=== PATIENT | female | born 1990 | race Two or more races ===

== ENCOUNTER 2024-01-09 09:20 | Emergency (ER) | payer MEDICAID, OTHER ==
[~2024-01-09] VITALS: Ht 162.6 cm; Wt 94.5 kg
[2024-01-09 09:58] VITALS: BP 153/101; PULSE 108; RESP 18; TEMP 98; O2SAT 97
[2024-01-09] MEDS ORDERED: NAPR-746 PO (10:10)
[2024-01-09] MEDS ORDERED: BACDST PO (10:10)
--- NOTE | 2024-01-09 10:10 | ED.PDOC ---
HPI (NEURO) HPI Comments 33 year old with no MHx presents with a chief complaint of tenderness to the occipital lobe x1 day Pain rated as moderate Denies fever, chills, night sweats Denies persistent nausea Denies vomiting Denies thunderclap headache Denies photophobia, phonophobia Denies head trauma around the time headache started Denies family history of brain issues persistent headaches Denies taking any blood thinner medication Denies vision/hearing changes Denies focal loss of strength/sensation or changes in speech Chief Complaint: Headache Time Seen by MD: 09:43 Primary Care Provider: TOMA Reviewed Notes: Nurses Notes, Medications, Allergies Information Source: Patient Mode of Arrival: Ambulatory Past Medical History PAST MEDICAL HISTORY: Denies Surgical History: Denies all surgeries FISHER SEAL History: No Pertinent FISHER SEAL History Family History Family History: Reviewed,noncontributory to illness All Other Systems: Reviewed and Negative (Per HPI) Physical Exam General Appearance: No Apparent Distress, Normal HEENT: Head (Folliculitis to the occipital lobe. Tender to palpation), Normal ENT Inspection, Pharynx Normal, TMs Normal Neck: Full Range of Motion, Non-Tender, Normal, Normal Inspection Respiratory: Chest Non-Tender, Lungs Clear, No Accessory Muscle Use, No Respiratory Distress, Normal Breath Sounds Cardiovascular: No Edema, No JVD, No Murmur, No Gallop, Normal Peripheral Pulses, Regular Rate/Rhythm Breast Exam: Deferred Gastrointestinal: No Organomegaly, Non Tender, No Pulsatile Mass, Normal Bowel Sounds, Soft Genitalia: Deferred Pelvic: Deferred Rectal: Deferred Extremities: No calf tenderness, Normal capillary refill, Normal inspection, Normal range of motion, Non-tender, No pedal edema Musculoskeletal : Apperance: Normal Neurologic: Alert, 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 Was a procedure done?: No Differential Diagnosis (SZ) Seizure: Other X-Ray, Labs, Meds, VS Vital Signs Date Time Temp Pulse Resp B/P (MAP) Pulse Ox O2 Delivery O2 Flow Rate FiO2 01/09/24 09:58 98.0 108 18 153/101 (118) 97 98.0 01/09/24 09:58 108 18 97 Room Air 01/09/24 09:40 98.0 108 18 153/110 (124) 97 154/101 (118) X-Ray, Labs, Meds, VS Comment After ROS and physical examination no red flags. Romberg negative. Neuro exam unremarkable. Findings consistent with folliculitis to the occipital lobe. Treatment will be initiated at this time and return precautions discussed no indication for labs or imaging. Patient is stable for discharge at this time. External notes reviewed. Test results and diagnostic imaging interpreted. All diagnostic findings, discharge care, education and instructions provided Follow-up with PCP in 2 to 3 days Patient verbalized understanding and agreed to treatment plan Vital signs stable, afebrile, no acute distress noted Patient ambulatory with strong steady gait Advised to return precautions for any new or worsening symptoms, return to ER immediately for re-evaluation Patient is aware that the purpose of this visit was for an acute medical emergency requiring emergent stabilization. Chronic conditions, including malignancies have not been ruled out. Patient is instructed to follow up with PCP as directed and discharge instructions for continued care and workup. If unable to arrange follow-up, patient is to return to the emergency department for reassessment. Patient (parent or legal guardian if applicable) was given verbal and written discharge instructions and acknowledges understanding. Time of 1ST Reevaluation: 10:07 Reevaluation 1ST: Improved Patient Education/Counseling: Diagnosis, Treatment Family Education/Counseling: Diagnosis, Treatment Departure 1 Departure Time of Disposition: 10:07 Impression: Primary Impression: Folliculitis Disposition: 01 HOME / SELF CARE / HOMELESS Condition: Stable e-Prescriptions Naproxen (Naproxen) 500 Mg Tab 500 MG PO BIDPC for 14 Days, #28 TAB 0 Refills Prov: MARIA TERESA STANTON NP 01/09/24 Sulfamethoxazole W/Trimethopri (Bactrim Ds Tablet) 1 Tab Tb 1 TAB PO BID for 7 Days, #14 TAB 0 Refills Prov: MARIA TERESA STANTON NP 01/09/24 Discharged With: Self Critical Care Note Critical Care Time?: No Stability Stability form required: No Heart Score Heart Score: Heart Score Response (Comments) Value History N/A 0 EKG N/A 0 Age N/A 0 Risk Factors N/A 0 Troponin N/A 0 Total 0 MARIA TERESA STANTON NP Jan 09, 2024 10:10
== END 2024-01-09 10:18 | disposition home or self-care (01) ==
LOC: ER 09:20 → EDBD 09:20 → ER 10:17
DX: L73.9 Follicular disorder, unspecified (principal)

== ENCOUNTER 2024-08-17 19:26 | Emergency (ER) | payer MEDICAID ==
[~2024-08-17] VITALS: Ht 162.6 cm; Wt 94.2 kg
[~2024-08-17 19:26] MED LIST: BACDST PO; NAPR-746 PO
[2024-08-17 20:14] LABS: Chloride 104 mmol/L (98-107); Potassium 3.6 mmol/L (3.5-5.1); Sodium 141 mmol/L (136-145)
[2024-08-17 20:15] LABS: Anion Gap 10 (5-15); Carbon Dioxide 27 mmol/L (20-31)
[2024-08-17 20:16] VITALS: BP 160/97; PULSE 84; RESP 15; TEMP 98; O2SAT 94
[2024-08-17 20:16] LABS: Calcium 10.3 mg/dL (8.7-10.4)
[2024-08-17 20:20] LABS: BUN/Creatinine Ratio 16.7 (10.0-20.0); Blood Urea Nitrogen 17 mg/dL (9-23); Glucose 95 mg/dL (74-106)
[2024-08-17] MEDS: ASPirin 325 MG TAB PO ONE (20:20)
[2024-08-17] MEDS: cloNIDine HCL 0.1 MG TAB PO ONE (20:20)
--- NOTE | 2024-08-17 20:20 | ED.PDOC ---
HPI Comments 33y F who presents to the ED for chief complaint of elevated blood pressure. Pt states she has history of HTN and bp has been elevated for the last 4 years, since the last of her child. her doctor has asked her to monitor her BP in the last 2 weeks, she has been having elevated blood pressure readings at home and came to the ED for further evaluation. Pt states her blood pressure at home this AM was in the 160's systolic and came to the ED for further evaluation. Pt in the ED, had noted BP of 157/107 but otherwise denies any other symptoms. Pt states her PCP recently switched her medications from 2 medications to only 1 medication but cannot recall the names or dosages. Pt in the ED, otherwise denies chest pain, or associated symptoms.Pt denies any other symptoms at this time. after discussing about the need to follow up with her doctor for continuous BP medication titration and adjustment, she reports that she has chest pain now Chief Complaint: High Blood Pressure Time Seen by MD: 19:30 Primary Care Provider: TOMA Potts Notes: Medications, Allergies Allergies: Coded Allergies: NO KNOWN ALLERGIES (Unverified , 01/09/24) Home Meds Active Scripts Naproxen (Naproxen) 500 Mg Tab, 500 MG PO BIDPC for 14 Days, #28 TAB 0 Refills Prov:MARIA TERESA STANTON NP 01/09/24 Sulfamethoxazole W/Trimethopri (Bactrim Ds Tablet) 1 Tab Tb, 1 TAB PO BID for 7 Days, #14 TAB 0 Refills Prov:MARIA TERESA STANTON FINAL ASSEMBLY INSPECTOR 01/09/24 Information Source: Patient Mode of Arrival: Ambulatory Severity: Moderate Timing: Other (years) Duration: Intermittent Location: Chest (L) Radiation: No Radiation Onset: At Rest Cardiac Risk Factors: HTN History of: None Modifying Factors: Other (by discussing about her HTN) Associated Signs and Symptoms: None Past Medical History PAST MEDICAL HISTORY: HTN Surgical History: Denies all surgeries WASTE RECLAIMER History: No Pertinent WASTE RECLAIMER History Family History Family History: Reviewed,noncontributory to illness Social History Smoker: Non-Smoker Alcohol: Denies ETOH Use Drugs: Denies Drug Use Lives In: Home Constitutional: denies: chills, diaphoresis, fatigue, fever, malaise, sweats, weakness, others EENTM: denies: blurred vision, double vision, ear bleeding, ear discharge, ear drainage, ear pain, ear ringing, eye pain, eye redness, hearing loss, mouth pain, mouth swelling, nasal discharge, nose bleeding, nose congestion, nose pain, photophobia, tearing, throat pain, throat swelling, voice changes, others Respiratory: denies: cough, hemoptysis, orthopnea, SOB at rest, shortness of breath, SOB with excertion, stridor, wheezing, others Cardiovascular: reports: chest pain; denies: dizzy spells, diaphoresis, Dyspnea on exertion, edema, irregular heart beat, left arm pain, lightheadedness, palpitations, PND, syncope, others Gastrointestinal: denies: abdomen distended, abdominal pain, blood streaked bowels, constipated, diarrhea, dysphagia, difficulty swallowing, hematemesis, melena, nausea, poor appetite, poor fluid intake, rectal bleeding, rectal pain, vomiting, others Genitourinary: denies: abnormal vagina bleeding, burning, dyspareunia, dysuria, flank pain, frequency, hematuria, incontinence, pain, , vagina discharge, urgency, others Neurological: denies: dizziness, fainting, headache, left sided numbness, left sided weakness, numbness, paresthesia, pre-existing deficit, right sided numbness, right sided weakness, seizure, speech problems, tingling, tremors, weakness, others Musculoskeletal: denies: back pain, gout, joint pain, joint swelling, muscle pain, muscle stiffness, neck pain, others Integumetry: denies: bruises, change in color, change in hair/nails, dryness, laceration, lesions, lumps, rash, wounds, others Allergic/Immunocompromised: denies: Difficulty Healing, Frequent Infections, Hives, Itching, others Hematologic/Lymphatic: denies: anemia, blood clots, easy bleeding, easy bruising, swollen glands, others Endocrine: denies: excessive hunger, excessive sweating, excessive thirst, excessive urination, flushing, intolerance to cold, intolerance to heat, une xplained weight gain, unexplained weight loss, others Psychiatric: denies: anxiety, bipolar disorder, depression, hopeless, panic disorder, schizophrenia, sleepless, suicidal, others All Other Systems: Reviewed and Negative Physical Exam General Appearance: No Apparent Distress, Normal HEENT: Normal ENT Inspection, Pharynx Normal, TMs Normal Neck: Full Range of Motion, Non-Tender, Normal, Normal Inspection Respiratory: Lungs Clear Cardiovascular: No Edema, No JVD, No Murmur, No Gallop, Normal Peripheral Pulses, Regular Rate/Rhythm Breast Exam: Deferred Gastrointestinal: No Organomegaly, Non Tender, No Pulsatile Mass, Normal Bowel Sounds, Soft Genitalia: Deferred Pelvic: Deferred Rectal: Deferred Extremities: No calf tenderness, Normal capillary refill, Normal inspection, Normal range of motion, Non-tender, No pedal edema Musculoskeletal : Apperance: Normal Neurologic: Alert, etcher photoengraving II-XII nml as Tested, No Motor Deficits, Normal Affect, Normal Mood, No Sensory Deficits Cerebellar Function: Normal Reflexes: Normal Skin: Dry, Normal Color, Warm Lymphatic: No Adenopathy Was a procedure done? Was a procedure done?: No CP Differential Dx Differential Diagnosis: Angina, Anxiety / Panic Attack Differential Diagnosis: HTN Essential, HTN Accelerated Differential Diagnosis: Angina, Aortic dissection, Chest Wall Pain, Cholelithiasis, Costochondritis, Esophageal reflux/spasm, Gastritis, Myocardial Infarction, Pericarditis, Pneumonia, Pneumothorax, Pulmonary Embolus X-Ray, Labs, Meds, VS Vital Signs Date Time Temp Pulse Resp B/P (MAP) Pulse Ox O2 Delivery O2 Flow Rate FiO2 08/17/24 20:20 160/97 08/17/24 20:16 98.0 87 15 160/97 (118) 94 98.0 08/17/24 20:16 84 15 94 Room Air* 0 21 08/17/24 19:51 88 08/17/24 19:40 98.8 93 16 157/107 (124) 98 98.8 Lab Test 08/17/24 19:51 08/17/24 19:50 Range/Units Urine Test Negative Negative Sodium Level 141 136-145 mmol/L Potassium Level 3.6 3.5-5.1 mmol/L Chloride Level 104 98-107 mmol/L Carbon Dioxide Level 27 20-31 mmol/L Anion Gap 10 5-15 Blood Urea Nitrogen 17 9-23 mg/dL Creatinine 1.02 0.550-1.02 mg/dL Glomerular Filtration Rate Calc 74 >90 mL/min BUN/Creatinine Ratio 16.7 10.0-20.0 Serum Glucose 95 74-106 mg/dL Calcium Level 10.3 8.7-10.4 mg/dL Troponin I High Sensitivity < 3 L </=34 ng/L Current Medications Medications (Trade) Dose Ordered Sig/Олег Route Start Time Stop Time Status Last Admin Aspirin 325 mg ONCE ONCE PO 08/17/24 19:45 08/17/24 19:46 DC 08/17/24 20:20 Clonidine HCl (Catapres Tablet) 0.1 mg ONCE ONCE PO 08/17/24 19:45 08/17/24 19:46 DC 08/17/24 20:20 Time of 1ST Reevaluation: 20:55 Reevaluation 1ST: Improved Patient Education/Counseling: Diagnosis, Treatment, Prognosis, Need For Follow Up Family Education/Counseling: No Family Present Comments pt has longstanding poorly controlled BP. she has decreased her salt intake in the last 2 weeks and her doctor has made medication changes in the last 2 weeks. cardiac workup is unremarkable an renal function is normal her BP is improved with clonidine. she is stable to follow up with her doctor for continual medication adjustment SEPSIS Sepsis Screen Physician Orders Electrocardigram (08/17/24 19:43) Chest Portable (08/17/24 19:43) Troponin-I Hs (08/17/24 20:43) Troponin-I Hs (08/17/24 22:43) Electrocardigram (08/17/24 20:43) Electrocardigram (08/17/24 22:43) Vital Signs Date Time Temp Pulse Resp B/P (MAP) Pulse Ox O2 Delivery O2 Flow Rate FiO2 08/17/24 20:20 160/97 08/17/24 20:16 98.0 87 15 160/97 (118) 94 98.0 08/17/24 20:16 84 15 94 Room Air* 0 21 08/17/24 19:51 88 08/17/24 19:40 98.8 93 16 157/107 (124) 98 98.8 Medications Medications Dose Ordered Sig/Олег Route Start Time Stop Time Status Last Admin Dose Admin Aspirin 325 mg ONCE ONCE PO 08/17/24 19:45 08/17/24 19:46 DC 08/17/24 20:20 Clonidine HCl 0.1 mg ONCE ONCE PO 08/17/24 19:45 08/17/24 19:46 DC 08/17/24 20:20 Departure 1 Departure Time of Disposition: 20:56 Impression: Primary Impression: Hypertension Qualified Codes: I10 - Essential (primary) hypertension Additional Impressions: Fear associated with healthcare Chest pain Qualified Codes: R07.9 - Chest pain, unspecified Disposition: HOME / SELF CARE / HOMELESS Condition: Good Discharged With: Self Critical Care Note Critical Care Time?: No Stability Stability form required: No Heart Score Heart Score: Heart Score Response (Comments) Value History Slightly Suspicious 0 EKG Normal 0 Age <45 0 Risk Factors 1 or 2 risk factors 1 Troponin Normal limit 0 Total 1 I personally scribed for STEW ARAYA MD ([facility]) on 08/17/24 at 20:20. Electronically submitted by Vitaliy Smith ([facility]). STEW ARAYA MD Aug 17, 2024 20:20
--- NOTE | 2024-08-17 20:50 | DVH ---
CHEST RADIOGRAPH Indication: cp Technique: Single frontal view of the chest was obtained Comparison: None FINDINGS: Lines and Tubes: None Lungs: No focal consolidation. Pleura: No effusion. No pneumothorax. Cardiomediastinal contours: Unremarkable Bones: No acute osseous abnormality. IMPRESSION: 1. No acute cardiopulmonary disease.
--- NOTE | 2024-08-18 00:15 | ECG ---
[facility] Test Date: 2024-08-17 Test Time: 19:51:13 Pat Name: LAN MORRISON Department: ED Room: Gender: F Monotype Caster: ODESSA : 1990 Requested By: STEW ARAYA Order Number: [id number] Reading MD: Measurements Intervals [place] Rate: 88 P: 32 AR: 164 QRS: -13 QRSD: 89 T: 36 QT: 382 QTc: 463 Interpretive Statements Sinus rhythm Low voltage, precordial leads Please click the below link to view image of tracing.
== END 2024-08-17 21:22 | disposition home or self-care (01) ==
LOC: ER 19:26
DX: I10 Essential (primary) hypertension (principal); R07.89 Other chest pain; F40.232 Fear of other medical care
CPT/HCPCS: 36415; 71045; 80048; 81025; 84484; 93005